=== PATIENT | female | born 1965 | race Caucasian/White ===

== ENCOUNTER → 2018-05-25 | Outpatient (CLI) | payer BC ==
[~2018-05-25] MED LIST: ESTR1PAT25 TD; LEVO100T PO; OMEP-110 PO; PROG200C15 PO
== END | disposition home or self-care (01) ==
LOC: STAR 14:12
PROVIDERS: ATTEND Orthopaedic Surgery
DX: Z02.9 Encounter for administrative examinations, unspecified (principal)

== ENCOUNTER 2018-06-01 11:26 | Day surgery (SDC) | payer BC ==
[~2018-06-01] VITALS: Ht 154.9 cm; Wt 50.9 kg
[~2018-06-01 11:26] MED LIST changes: +BUPIVACAINE/PF-EPI 0.5% 1:200K ONE; +LIDOCAINE 1%-EPI 1:100K, 30ML ONE; +NEOSPORIN OINT, 15GM ONE
[2018-06-01 11:50] VITALS: BP 109/74
[2018-06-01] MEDS ORDERED: LACTATED RINGERS 1,000 ML IV SCH (11:55)
[2018-06-01] MEDS ORDERED: SCOPOLAMINE PATCH, 1.5MG PATCH.TD72 TD ONE (12:00)
[2018-06-01] MEDS ORDERED: GABAPENTIN 300 MG CAPSULE PO ONE (12:00)
[2018-06-01] MEDS ORDERED: ACETAMINOPHEN 500 MG TABLET PO ONE (12:00)
[2018-06-01] MEDS ORDERED: MIDAZOLAM 1 MG/ML, 2ML ONE (14:08)
[2018-06-01] MEDS ORDERED: FENTANYL PF 250 MCG/5ML ONE (14:08)
[2018-06-01] MEDS ORDERED: LIDOCAINE-MPF 2% ,5ML ONE (14:45)
[2018-06-01] MEDS ORDERED: PROPOFOL 10 MG/ML, 20ML ONE (15:06)
[2018-06-01] MEDS ORDERED: DEXAMETHASONE 4 MG/ML, 1ML ONE (15:06)
[2018-06-01] MEDS ORDERED: CEFAZOLIN 1,000 MG ONE (15:06)
[2018-06-01] MEDS ORDERED: ONDANSETRON 2MG/ML, 2ML ONE (15:06)
[2018-06-01] MEDS ORDERED: HYDROmorphone 2 MG/ML, 1ML IVPush PRN (15:30)
[2018-06-01] MEDS ORDERED: LORazepam 2 MG/ML, 1ML IVPush PRN (15:30)
[2018-06-01] MEDS ORDERED: ONDANSETRON 2MG/ML, 2ML IV PRN (15:30)
[2018-06-01] MEDS ORDERED: OXYcodone 5 MG/5 ML ORAL.SOL UDC PO PRN (15:30)
[2018-06-01] MEDS ORDERED: ONDANSETRON ODT 8 MG PO PRN (15:30)
[2018-06-01] MEDS ORDERED: FENTANYL PF 100 MCG/2ML IV PRN (15:30)
[2018-06-01] MEDS ORDERED: FENTANYL PF 100 MCG/2ML ONE (15:36)
[2018-06-01] MEDS ORDERED: OXYcodone 5 MG/5 ML ORAL.SOL UDC ONE (15:36)
[2018-06-02] MEDS ORDERED: LEVOTHYROXINE 100 MCG TABLET PO SCH (06:00)
[2018-06-02] MEDS ORDERED: OMEPRAZOLE 20 MG CAPSULE.DR PO SCH (09:00)
[2018-06-02] MEDS ORDERED: PROGESTERONE MICRONIZED 200 MG PO SCH (09:00)
== END 2018-06-01 16:50 | disposition home or self-care (01) ==
LOC: OUT 11:26
PROVIDERS: ATTEND Orthopaedic Surgery
DX: M94.262 Chondromalacia, left knee (principal); S83.242A Other tear of medial meniscus, current injury, left knee, initial encounter; X58.XXXA Exposure to other specified factors, initial encounter; Y93.89 Activity, other specified; Y92.89 Other specified places as the place of occurrence of the external cause; Y99.8 Other external cause status; Z88.0 Allergy status to penicillin; Z88.8 Allergy status to other drugs, medicaments and biological substances
CPT/HCPCS: 29881; J0690; J1100; J2250; J2405; J2704; J3010; J3490